=== PATIENT | male | born 1980 | race Caucasian/White ===

== ENCOUNTER 2021-06-26 12:45 | Emergency (ER) | payer OTHER ==
[~2021-06-26] VITALS: Ht 177.8 cm; Wt 65.8 kg
[2021-06-26 12:55] VITALS: BP 129/85
--- NOTE | 2021-06-26 14:42 | EKG ---
[place] [address] ELECTROCARDIOGRAM REPORT Name: NAYANA VALDES Room: [facility]#: [id number] Admission: Attend Phys: Discharge: Date of : 78 Date of Service: 06/26/211417 Report #: [id number] THIS REPORT FOR: //name// [facility] ED Test Date: 2021-06-26 Test Time: 14:18:51 Pat Name: NAYANA VALDES Department: Room: Gender: [employer]: : 1980 Requested By: Thaddeus Rowe Order Number: [id number] MD: Ramesh Guillen Measurements Intervals [place] Rate: 56 P: 74 DC: 141 QRS: 79 QRSD: 84 T: 52 QT: 403 QTc: 389 Interpretive Statements Sinus rhythm Consider left ventricular hypertrophy No previous ECG available for comparison Electronically Signed On 06-26-2021 14:42:00 CDT by Ramesh Guillen [email or web address] <ELECTRONICALLY SIGNED> By: Ramesh Guillen MD, [facility] 06/26/21 1442 1418 1418 Ramesh Guillen MD, FACC /EPI
[2021-06-26 15:12] LABS: ABSOLUTE BASOPHILS 0.1 thou/uL (0.0-0.2); ABSOLUTE LYMPHOCYTES 2.1 thou/uL (0.8-5.3); ABSOLUTE MONOCYTES 0.7 thou/uL (0.0-1.2); ABSOLUTE NEUTROPHILS 6.1 thou/uL (1.6-8.1); BASOPHILS 0.6 %; EOSINOPHILS 0.3 %; HEMATOCRIT 41.1 % (42.0-52.0); HEMOGLOBIN 13.9 gm/dL (14.0-18.0); LYMPHOCYTES 23.2 %; MCH 30.3 pg (26.0-34.0); MCHC 33.9 g/dL (28.0-37.0); MCV 89.4 fL (80.0-100.0); MPV 7.4 fl. (7.2-11.1); NUCLEATED RBCS 0 /100WBC; PLATELET COUNT* 352 thou/uL (150-400); POLYS 67.9 %; RBC 4.59 mil/uL (4.50-6.00); RDW-CV 12.8 % (10.5-14.5)
[2021-06-26 15:18] LABS: CREATININE 1.1 mg/dL (0.6-1.3); POTASSIUM 4.2 mmol/L (3.5-5.1)
[2021-06-26 15:23] LABS: ALBUMIN 3.6 g/dL (3.4-5.0); TOTAL BILIRUBIN 0.2 mg/dL (<0.1-1.0); TOTAL PROTEIN 7.2 g/dL (6.4-8.2)
== END 2021-06-26 16:28 | disposition home or self-care (01) ==
LOC: M.ERS 12:45
PROVIDERS: Family Medicine
DX: S00.93XA Contusion of unspecified part of head, initial encounter (principal); R55 Syncope and collapse; F17.210 Nicotine dependence, cigarettes, uncomplicated; W18.30XA Fall on same level, unspecified, initial encounter; Y93.89 Activity, other specified; Y92.89 Other specified places as the place of occurrence of the external cause; Y99.8 Other external cause status